=== PATIENT | female | born 1975 ===

== ENCOUNTER 2019-08-03 05:04 | Day surgery (SDC) | payer OTHER ==
[2019-08-03] MEDS ORDERED: PERCOCET 5-3251 EACH PO (09:10)
[2019-08-03] MEDS ORDERED: RECTICARE30 GM TOP (09:10)
== END 2019-08-03 16:30 | disposition home or self-care (01) ==
LOC: CIR.AMB 05:04
DX: K60.1 Chronic anal fissure (principal)